=== PATIENT | male | born 1985 | race African-American/Black ===

== ENCOUNTER 2016-10-12 19:49 | Emergency (ER) | payer SELFPAY ==
[~2016-10-12] VITALS: Ht 193 cm; Wt 86.0 kg
[~2016-10-12 19:49] MED LIST: CEPH500C3 PO
[2016-10-12 19:50] VITALS: BP 135/92; PULSE 82; RESP 18; O2SAT 97
--- NOTE | 2016-10-12 20:24 | PD ---
HPI Chief Complaint: Laceration/Skin Injury Time Seen by Provider: 20:21 Travel History International Travel<30 days: No Contact w/Intl Traveler<30days: No Traveled to known affect area: No History of Present Illness HPI 31-year-old black male presents to emergency department for evaluation of a facial laceration. He states that he was accidentally elbowed in the lip while playing basketball. No other injuries. Pain is mild. [facility] Past Medical History Medical History: Denies Significant Hx Tetanus Vaccination: < 5 Years Past Surgical History Surgical History: No Previous Surgery Social History Alcohol Use: Yes (SOCIALLY) Tobacco Use: Yes (/ PPD) Substance Use: No Allergies-Medications (Allergen,Severity, Reaction): Coded Allergies: No Known Allergies (Verified , 10/12/16) Reported Meds & Prescriptions Reported Meds & Active Scripts Active No Active Prescriptions or Reported Medications Review of Systems Except as stated in HPI: all other systems reviewed are Neg Physical Exam Narrative GENERAL: Well-developed, well-nourished in no acute distress. Nontoxic appearing. HEAD: Normocephalic, patient has a 2 cm laceration involving the left upper lip along the vermilion border. There is some minor abrasion contusions to the wet vermilion. Mild swelling. No foreign body. EYES: Pupils equal round and reactive. Extraocular motions intact. No scleral icterus. No injection or drainage. ENT: TMs clear without erythema. The external auditory canals clear. Nose: clear . Posterior pharynx is pink and moist. No tonsillar edema or exudate. Uvula midline. Airway patent. NECK: Trachea midline.Supple, nontender, moves head freely. No central bony tenderness or spasm. CARDIOVASCULAR: Regular rate and rhythm without murmurs, gallops, or rubs. RESPIRATORY: Clear to auscultation. Breath sounds equal bilaterally. No wheezes , rales, or rhonchi. GASTROINTESTINAL: Abdomen soft, non-tender, nondistended. No hepato-splenomegaly , or palpable masses. No guarding. EXTREMITIES: No clubbing, cyanosis, or edema. No joint tenderness, effusion, or edema noted. BACK: Nontender without deformity or crepitance. No flank tenderness. Data Data Last Documented VS Vital Signs Date Time Temp Pulse Resp B/P Pulse Ox O2 Delivery O2 Flow Rate FiO2 10/12/16 19:50 82 18 135/92 97 Room Air [facility] Medical Decision Making Medical Screen Exam Complete: Yes Emergency Medical Condition: Yes Medical Record Reviewed: Yes Differential Diagnosis MDM: High Differential diagnoses: Fracture, sprain, strain, dislocation, contusion, neurovascular injury Narrative Course Patient lacerations close sutures. Amoxicillin 1 g by mouth Procedures Procedure Narrative LACERATION LOCATION: Left upper lip involving the vermilion border LENGTH: 2 cm NUMBER OF STITCHES/JOSELITO: 7 REPAIR: The area of the laceration was prepped with Betadine and sterilely draped. The laceration was infiltrated with 1% lidocaine with epinephrine. The wound was copiously irrigated and explored without evidence of foreign body , tendon injury or neurovascular injury. The vermilion borders aligned anatomically. The wound was closed using 6-0 proline. This was a simple single layer repair. A sterile dressing was applied. The patient was advised to keep the dressing clean and dry. Patient tolerated the procedure well. Diagnosis Primary Impression: Lip laceration Additional Impression: Facial contusion Patient Instructions: General Instructions Additional Instructions: Rest. Ice pack tonight. Tylenol or Advil for pain. Amoxicillin. Daily wound care with soap, water, Neosporin. Sutures out in 5 days. Sunscreen and mederma for 6 months. Return to the ER for any problems. Med/Other Pt SpecificInfo: Prescription(s) given, Wound Care Scripts No Active Prescriptions or Reported Meds Disposition: 01 DISCHARGE HOME Condition: Stable Aiden Mondragon Oct 12, 2016 20:24
[2016-10-12] MEDS ORDERED: AMOX500T PO (20:25)
[2016-10-12] MEDS ORDERED: AMOXICILLIN (TRIHYDRATE) 500 MG CAP PO ONE (20:30)
[2016-10-12] MEDS ORDERED: LIDOCAINE 1%/EPINEPHrine 1:100,000 SOLN 20 ML VIAL INFIL ONE (20:30)
== END 2016-10-12 20:51 | disposition home or self-care (01) ==
LOC: NEPB 19:49
DX: S01.511A Laceration without foreign body of lip, initial encounter (principal); S00.83XA Contusion of other part of head, initial encounter; F17.200 Nicotine dependence, unspecified, uncomplicated; W50.0XXA Accidental hit or strike by another person, initial encounter; Y93.67 Activity, basketball
CPT/HCPCS: 12011